=== PATIENT | female | born 1965 | race Caucasian/White ===

== ENCOUNTER 2025-06-16 13:16 | Inpatient (IN) | payer MEDICARE, MEDICAID, SELFPAY ==
[2025-06-16] VITALS (11 sets, daily range): BP systolic 96–161; BP diastolic 61–93; PULSE 64–96; RESP 12–20; TEMP 36.2–37; O2SAT 97–100; BMI 21.3
--- NOTE | ~2025-06-16 | CT_ITS ---
History: Increased confusion with a remote history of a fall without loss of consciousness PROCEDURE: CT head without contrast. Examination is limited by motion artifact. COMPARISON: None TECHNIQUE: Axial imaging of the head performed from the skull base to the vertex without IV contrast. Sagittal a nd coronal reformations obtained. DLP: 681 mGy-cm FINDINGS: The ventricles are enlarged. The dilatation of the ventricles is proportional to the degree of sulcal prominence, not uncommon in the senescent brain. Decreased attenuation is identified within the periventricular white matter, likely secondary to micr ovascular ischemic disease, in a patient of this age. There is no mass, mass effect or midline shift. There is no abnormal extra-axial fluid collection or intracranial hemorrhage. Visualized paranasal sinuses are clear. The mastoid air cells are well aerated. No acute displaced fractures within the overlying cranium. Impression: No acute intracranial hemorrhage or suspicious mass effect. Reviewed, dictated and finalized at location A. Impression: No acute intracranial hemorrhage or suspicious mass effect.
--- NOTE | ~2025-06-16 | CT_ITS ---
History: Altered mental status, with a remote history of a fall without loss of consciousness PROCEDURE: CT cervical spine without intravenous contrast. COMPARISON: None TECHNIQUE: Multiple contiguous axial images of the cervical spine were performed without the administration of i ntravenous contrast. DLP: 135 mGy-cm FINDINGS: Straightening and slight reversal of the normal curvature of the cervical spine is identified. Significant degenerative disease is identified, with osteophyte formation, disc space narrowing, endp late changes and facet arthropathy. There are bridging endplate osteophytes at multiple levels in the cervical spine, consistent with dif fuse idiopathic skeletal hyperostosis (DISH). No acute fractures are present. Biapical scarring. No soft tissue abnormality is appreciated. The airway is patent Impression: Degenerative disease, without acute fracture. Reviewed, dictated and finalized at location A. Impression: Degenerative disease, without acute fracture.
--- NOTE | ~2025-06-16 | XR_ITS ---
HISTORY: swelling, fall COMPARISON: None TECHNIQUE: 3 views of the left elbow were performed. The FINDINGS: No acute fracture is identified. No elevation of the anterior or posterior fat pads are identified to suggest a supracondylar fracture . Overlying soft tissues are unremarkable. Bone mineralization is age-appropriate. IMPRESSION: No acute fracture or dislocation Reviewed, dictated and finalized at location A.
--- NOTE | ~2025-06-16 | CT_ITS ---
EXAMINATION: CT abdomen pelvis wo con DATE: 06/17/2025 09:40 INDICATION: Intermittent diarrhea TECHNIQUE: Computed tomography (CT) of the abdomen and pelvis was performed without intravenous contr ast. Automated exposure control and iterative reconstruction technique were employed. The dose-length product was 298.75 mGy-cm. COMPARISON: None FINDINGS: Mild dependent atelectasis in bilateral lung bases. Heart size is normal. No pericardial or pleural e ffusion. Bilateral breast implants, collapsed on the right. Focal hepatic steatosis along the ligamen hernandez teres. Gallbladder, spleen, pancreas, bilateral adrenal glands and kidneys are normal. There are few scattered clonic diverticula without adjacent inflammatory stranding to suggest diverticulitis. S mall amount of fluid in the proximal colon consistent with reported history of diarrhea. No abnormal bowel wall thickening or obstruction. Normal appendix. Bladder, retroverted uterus and bilateral adne xa are unremarkable. No free intraperitoneal gas or fluid. No pathologically enlarged abdominal or pe lvic lymphadenopathy. Mild lumbar levocurvature with mild lumbar and moderate lower thoracic spondylo sis. IMPRESSION: 1. Fluid in the proximal colon consistent with reported history of diarrhea. No other acute intra-abd ominal/pelvic process. Reviewed, dictated and finalized at location A. IMPRESSION: 1. Fluid in the proximal colon consistent with reported history of diarrhea. No other acute intra-abdominal/pelvic process.
--- NOTE | 2025-06-16 14:07 | ECG_ITS ---
Test Date: 2025-06-16 15:20:37 Measurements Intervals [place] Rate: 77 P: 54 [place]: 162 QRS: 41 QRSD: 82 T: 45 QT: 316 QTc: 359 Interpretive Statements SINUS RHYTHM POSSIBLE LEFT ATRIAL ENLARGEMENT BORDERLINE T WAVE ABNORMALITY- ANTERIOR LEADS BASELINE ARTIFACT- I, II, III, AVR, AVL, AVF, V1-V6 BORDERLINE ECG No previous ECG available for comparison Electronically Signed On 06-16-2025 20:20:01 CDT by Baldemar Baig D.O.
--- OUTSIDE RECORDS SUMMARY | 2025-06-16 14:20 | XMS_ITS | Clinical Summary ---
Author Organization [facility] Address [address] [place] [address] Care Team Providers Care Materials Manager Name Role Phone Buster Song MD Unavailable [phone] Mj Brown MD Primary Care Provider Dedra Bernal NP Unavailable Allergies No known active allergies Medications acetaminophen 500 mg capsule Take 2 capsules (1,000 mg total) by mouth every 6 (six) hours as needed for pain 30 tablet 2 Active mv,calcium,min/iro n/folic/vitK (ONE-A-DAY WOMEN'S COMPLETE ORAL) Take by mouth A ctive polycarbophil (FIBERCON) 625 mg tablet Take 1 tablet (625 mg total) by mouth daily Active valACYclovir (VALTREX) 500 mg tabletIndications: Chronic Suppression Take 1 tablet (500 mg total) by mouth daily 30 tablet 3 3 Active cyclobenzaprine (FLEXERIL) 5 mg tablet Take 1 tablet (5 mg total) by mouth 3 (three) times a day as needed for muscle spasms 90 tablet 4 Active sertraline (ZOLOFT) 100 mg tablet Take 1 tablet (100 mg total) by mouth daily 90 tablet 3 4 09/25/20 25 Active donepeziL (ARICEPT) 10 mg tablet Take 1 tablet (10 mg total) by mouth nightly 90 tablet 3 4 10/15/20 25 Active levothyroxine (SYNTHROID) 100 mcg tabletIndications: Acquired hypothyroidism TAKE 1 TABLET BY MOUTH DAILY BEFORE BREAKFAST 30 tablet 3 5 Active QUEtiapine (SEROquel) 25 mg tabletIndications: 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 Will want to bring cholesterol under control as best as possible. Discussed side effects, but it is the best class to bring heart risk down Encounter for medical examination to establish c are 03/17/2022 Assessment & Plan (10/05/2023 10:14 AM FIRE PREVENTION SPECIALIST): A(n) yearly Medicare Annual Wellness Visit has been performed today. Tita Kwan is up to date on screening tests. He is in need of Cholesterol screening and Cervical cancer screening. She is not up to date on needed preventative vaccinations; She is in need of Influenza and Covid-19 (booster). We discussed healthy lifestyle habits, educational material has been given. Medications reviewed, changes documented as per the medical record and discussed with patient along with risks vs benefits. Return in 3 months Assessment & Plan (03/17/2022 4:16 PM CDT): A(n) initial well visit to establish care has been performed today. Tita Kwan is not up to date on screening tests. She is in need of Breast cancer screening, Colon cancer screening and Cervical cancer screening- gathering outside records; otherwise ordered. She is not up to date on needed preventative vaccinations; She is in need of Pneumonia (Prevnar-13 or Pneumovax-23) and Zoster. Awaiting labs Referral to neuro sent List of counseling resources given Continuing levothyroxine 100 mcg for now, but awaiting thyroid panel today Continuing sertraline as well; seems to be doing better on that currently Alcohol abuse 12/15/2021 Traumatic mesenteric hematoma 12/14/2021 Traumatic hemopneumothorax 12/14/2021 Laceration of neck 12/14/2021 Laceration of chest wall 12/14/2021 Hypothyroid 12/14/2021 Acute traumatic pain 12/14/2021 Resolved Problems Problem Noted Date Diagnosed Date Resolved Date Suicide and self-inflicted i njury by cutting and piercing instrument 12/14/2021 03/13/2025 Psychosis 12/14/2021 03/01/2024 Encounters Date Type Department Care Team Description 06/16/2025 12:30 PM CDT Office Visit [facility] at [address] [address] Shantelle Vale NP Fall, initial encounter (Primary Dx); Confusion; Urinary incontinence, unspecified type; Bursitis of left elbow, unspecified bursa; Injury of head, initial encounter; Decreased appetite 03/16/2025 Results Follow-Up [facility] at [address] [address] Mj Brown MD Hepatitis B Surface Antigen Blood, Hepatitis B core antibody, total Blood, Hepatitis B surface antibody (immune status) Blood, Additional followed-up results: 7 from Last 3 Months Immunizations Immunization Administration Dates Next Due Influenza, Quadrivalent, Mae l Culture-based MDCK, Preservative Free, Antibiotic Free, Intramuscular 07/26/2022 Influenza, Quadrivalent, Spl it, Preservative Free, Intramuscular 10/05/2023 Influenza, Trivalent, Cell Culture-based MDCK, Preservative Free, Antibiotic Free, Intramuscular 07/25/2024 Influenza, Trivalent, Preser vative Free, Intramuscular 08/16/2015 Influenza, Unspecified 07/25/2024,2021(Deferred: Patient Refused),10/31/2021(Deferred: Patient Refused),10/31/2020(Deferred: Patient Refused),10/31/2020(Deferred: Patient Refused) Pneumococcal Conjugate Pcv20 11/30/2024 Tdap 12/13/2021 ZOSTER Recombinant 05/25/2022,03/18/2022 Surgical History Surgery Date Site/Laterality Comments ABDOMINAL SURGERY 12/13/2021 COLONOSCOPY 03/30/2022 AUGMENTATION MAMMAPLASTY Bilateral unsure of date, pt does state right implant popped 2020 Medical History Medical History Date Comments Anxiety Depression Thyroid disease Memory loss or impairment Family History Medical History Relation Name Comments No Known Problems Father estranged/ unknown No Known Problems Half-Brother 1 No Known Problems Half-Brother 2 No Known Problems Half-Sister 1 No Known Problems Half-Sister 2 Heart attack Mother Sandie Heart disease Mother Sandie Ovarian cancer Neg Hx Relation Name Status Comments Father Half-Brother 1 Alive Half-Brother 2 Alive Half-Sister 1 Alive Half-Sister 2 Alive Mother Sandie Social History Tobacco Use Types Packs/Day Years Used Date Smoking Tobacco: Never Smokeless Tobacco: Never Tobacco Cessation:Counseling Given: Not Answered Humiliation, Afraid, Rape, and Kick questionnair e Answer Date Recorded Within the last year, have y ou been afraid of your partner or ex-partner? No 12/07/2023 Within the last year, have y ou been humiliated or emotionally abused in other ways by your partner or ex-partner? No Within the last year, have y ou been kicked, hit, slapped, or otherwise physically hurt by your partner or ex-partner? No 12/07/2023 Within the last year, have y ou been raped or forced to have any kind of sexual activity by your partner or ex-partner? No 12/07/2023 AUDIT-C Answer Date Recorded Q1: How often do you have a drink containing alc ohol? 2-4 times a month 12/07/2023 Q2: How many drinks containi ng alcohol do you have on a typical day when you are drinking? 1 or 2 12/07/2023 Q3: How often do you have si x or more drinks on one occasion? Never 12/07/2023 PHQ-2 Answer Date Recorded PHQ-2 Total Score (If total score is 3 or more points, staff should administer the PHQ-9) 0 03/13/2025 Comments No Sex and Gender Information Value Date Recorded Sex Assigned at Not on file Legal Sex Female 4:26 PM FIRE PREVENTION SPECIALIST Gender Identity Female 03/16/2022 11:15 PM CDT Sexual Orientation Straight 03/16/2022 11 :15 PM CDT Obstetrics History Para Term AB IAB SAB Ectopic Multiple Livin g Live Births 2 2 2 Date Outcome GA Total Labor Labor//3rd Weight Sex Type Anes PTL Mckayla A1 A5 Name Clin 2 Term 3.175 kg (7 lb) F Vaginal None Complications:None 5 Term 3.175 kg (7 lb) F Vaginal None Complications:None Last Filed Vital Signs Vital Sign Reading Time Taken Comments Blood Pressure 125/76 06/16/2025 12:04 PM CDT Pulse 77 06/16/2025 12:04 PM CDT Temperature 37.2 C (98.9 F) 06/16/2025 12:04 PM CDT Respiratory Rate 18 06/16/2025 12:04 PM CDT Oxygen Saturation 98% 06/16/2025 12:04 PM CDT Inhaled Oxygen Concentration - - Weight 51.7 kg (114 lb) 06/16/2025 12:04 PM CDT Height 157.5 cm (5' 2) 03/13/2025 11:13 AM CDT Body Mass Index 20.85 03/13/2025 11:13 AM CDT Plan of Treatment Health Maintenance Due Date Last Done Comments Breast Cancer Screening-Mammogram 09/07/2024 09/07/2023, 07/06/2022, 04/07/2022 Cervical Cancer Screening 12/07/2024 12/07/2023 Influenza Vaccine (#1) 2025 , 07/25/2024, 10/05/2023, Additional history exists Depression Screening 03/13/2026 03/13/2025, 09/05/2024, 03/01/2024, Additional history exists Regular Well Visit/Exam 18-64 03/13/2026 03/13/2025, 12/07/2023, 10/05/2023 DTaP/Tdap/Td Vaccine (2 - Td or Tdap) 12/13/2031 12/13/2021 Colon Cancer Screening-Colonoscopy 03/30/2032 03/30/2022, 03/30/2022, 03/30/2022 Hepatitis C Screening Completed 12/15/2021 Zoster Vaccine Completed 05/25/2022, 03/18/2022 Covid-19 Vaccine Completed 07/25/2024, , 10/28/2021, Additional history exists Pneumococcal vaccine <65 Aged Out 11/30/2024 No longer eligible based on patient's age to complete this topic Hepatitis B Screening Completed 03/14/2025 Procedures Procedure Name Priority Date/Time Associated Diagnosis Comments POCT URINALYSIS DIPSTICK Routine 06/16/2025 12:22 PM CDT Urinary incontinence, unspecified type PAP AND HPV, REFLEX TO HPV GENOTYPES Routine 12/07/2023 10:55 AM FIRE PREVENTION SPECIALIST Screening for cervical cancer Encounter for gynecological examination with Papanicolaou smear of cervix SCREENING MAMMOGRAM BILATERAL W YURY W IMPLANTS Schedule Routine, Read Routine (OP Routine) 09/07/2023 11:57 AM FIRE PREVENTION SPECIALIST Screening mammogram, encounter for COLONOSCOPY 03/30/2022 8:59 AM CDT HEPATITIS PANEL, ACUTE Routine 12/15/2021 8:27 PM FIRE PREVENTION SPECIALIST from Last 3 Months or Most Recently Relevant to Health Maintenance Results * POCT urinalysis dipstick (06/16/2025 12:22 PM CDT) Color, Urine, POC Yellow Clarity, ur, POC Clear Clear Glucose, ur, POC Negative Negative Bilirubin, ur, POC Negative Negative Ketones, ur, POC Negative Negative Specific [place], POC 1.010 1.003 - 1.030 Blood, ur, POC Negative Negative pH, ur, POC 6.5 5.0 - 8.0 Protein, ur, POC Negative Negative Urobilinogen, urine, POC 0.2 0.2 - 1.0 mg/dL Nitrite, ur, POC Negative Negative Leukocytes, ur, POC Negative Negative Lot Number [id number] Urine 06/16/2025 12:2 2 PM CDT Shantelle Vale NP POINT OF CARE TEST ORDERAB LES Final Result * Pap and HPV, reflex to HPV Genotypes (12/07/2023 10:55 AM FIRE PREVENTION SPECIALIST) CLINICAL INFORMATION: [facility] Comment:WWE LMP [facility] Comment:NA Previous Pap [facility] Comment:NONE GIVEN Prev. Bx [facility] Comment:NONE GIVEN SOURCE: [facility] Comment:Cervix, Endocervix Pap, specimen adequacy [facility] Comment: Satisfactory for evaluation. Endocervical/transformation zone component present. HPV interp [facility] Comment: Cytology Results: Negative for intraepithelial lesion or malignancy. Atrophic pattern; predominantly parabasal cells COMMENTS [facility] Comment: This Pap test has been evaluated with computer assisted technology. Carbon Setter [facility] Comment: MICKIE CT(ASCP) CT Screening Location: [address] [address] Comment [facility] Comment: EXPLANATORY NOTE: The Pap is a screening test for cervical cancer. It is not a diagnostic test and is subject to false negative and false positive results. It is most reliable when a satisfactory sample, regularly obtained, is submitted with relevant clinical findings and history, and when the Pap result is evaluated along with historic and current clinical information. Human papillomavirus DNA, High Risk E6/E7 Not Detected NOT DETECTED [employer] [facility] [place] Comment: Not Detected High Risk HPV types (16,18,31,33,35,39,45,51,52, 56,58,59,66,68) were not detected. Other HPV types which cause anogenital lesions may be present. The significance of the other types of HPV in malignant processes has not been established. Methodology: Real Time PCR Thin prep 12/07/2023 10:5 5 AM FIRE PREVENTION SPECIALIST 12/08/2023 11:57 PM FIRE PREVENTION SPECIALIST Azalia Ferguson MARKET RESEARCH ASSOCIATE LAB CYTOLOGY ORDERABLES Final Re sult SOBEIDA [facility] [address] [place] [address] [facility] [address] [facility] [place] [address] * Screening Mammogram Bilateral W Yury W Implants (09/07/2023 11:57 AM FIRE PREVENTION SPECIALIST) Anatomical Region Laterality Modality Breast Bilateral Mammography 09/07/2023 12:1 1 PM FIRE PREVENTION SPECIALIST Impressions 09/07/2023 12:11 PM FIRE PREVENTION SPECIALIST There is no mammographic evidence of malignancy. A 1 year screening mammogram is recommended. BI-RADS: 2 - Benign. The patient has been or will be contacted. The patient will be entered into a reminder system with a target due date of 1 year for her next mammogram. Electronically signed by: Rishi Arevalo M.D. Narrative 09/07/2023 12:11 PM FIRE PREVENTION SPECIALIST EXAMINATION: SCREENING MAMMOGRAM BILATERAL W YURY W IMPLANTS ORDERING HEALTHCARE PROVIDER: SELF SCREENING MAMMOGRAM HISTORY: Routine screening mammography. COMPARISON: 07/06/2022, 04/07/2022 TECHNIQUE: CC and MLO views of the bilateral breasts were obtained with digital technique using breast tomosynthesis with C view. Computer aided detection was utilized. FINDINGS: DENSITY: There are scattered fibroglandular elements in the bilateral breasts. BREASTS: A subpectoral saline left breast implant is unchanged in appearance. The presence of an implant limits the sensitivity of mammography. There is a stable small intramammary lymph node at the 2 o'clock position of the left breast, characterized on prior ultrasound. There are unchanged benign scattered calcifications in the right breast. There is no new suspicious finding in either breast on mammogram. us Self Screening Mammogram IMG MAMMO PROCEDURES Fi nal Result * COLONOSCOPY (03/30/2022 8:59 AM CDT) Anatomical Region Laterality Modality Other Narrative Procedure Note Margarita Baron MD - 03/30/2022 8:59 AM CDT [facility] Patient Name: Tita Kwan Procedure Date: 03/30/2022 8:59 AM Date of : 1965 Admit Type: Outpatient Age: 57 Gender: Female Note Status: Finalized Attending MD: Margarita Baron M.D. Procedure Date: 03/30/2022 Procedure: Colonoscopy Indications: Screening for colorectal malignant neoplasm, Thisis the patient's first colonoscopy Providers: Margarita Baron M.D., João Mota OYSTER BUYER (Anesthesia Staff), Eliza Tran RN, Avelino, Director Of First Impressions Referring MD: Mj Brown M.D. Medicines: Monitored Anesthesia Care Complications: No immediate complications. Estimated Blood Loss: Estimated blood loss: none. Procedure: Pre-Anesthesia Assessment: - Prior to the procedure, a History and Physicalwas performed, and patient medications and allergieswere reviewed. The patient is competent. The risks and benefits of the procedure and the sedation optionsand risks were discussed with the patient. Allquestions were answered and informed consent was obtained. Patient identification and proposed procedure were verified by the physician and the nurse in the pre-procedure area in the procedure room. Mental Status Examination: alert and oriented. Airway Examination: normal oropharyngeal airway and neck mobility. Respiratory Examination: clear to auscultation. CV Examination: normal. Prophylactic Antibiotics: The patient does not requireprophylactic antibiotics. Prior Anticoagulants: The patient has taken no anticoagulant or antiplatelet agents. ASA Grade Assessment: III - A patient with severesystemic disease. After reviewing the risks and benefits,the patient was deemed in satisfactory condition to undergo the procedure. The anesthesia plan was touse monitored anesthesia care (MAC). Immediately priorto administration of medications, the patient was re-assessed for adequacy to receive sedatives. The heart rate, respiratory rate, oxygen saturations, blood pressure, adequacy of pulmonary ventilation,and response to care were monitored throughout the procedure. The physical status of the patient was re-assessed after the procedure. - The risks and benefits of the procedure and the sedation options and risks were discussed with the patient. All questions were answered and informed consent was obtained. After I obtained informed consent, the scope was passed under direct vision. Throughout theprocedure, the patient's blood pressure, pulse, and oxygen saturations were monitored continuously. The scopewas passed under direct vision. The Colonoscope was introduced through the anus and advanced to the the cecum, identified by appendiceal orifice andileocecal valve. The colonoscopy was performed without difficulty. The patient tolerated the procedurewell. The quality of the bowel preparation was good. The bowel preparation used was GoLYTELY via split dose instruction. Findings: Hemorrhoids were found on perianal exam. Non-bleeding external and internal hemorrhoids were found during retroflexion. The hemorrhoids were mild. The exam was otherwise without abnormality on direct and retroflexion views. Impression: - Hemorrhoids found on perianal exam. - Non-bleeding external and internal hemorrhoids. - The examination was otherwise normal on directand retroflexion views. - No specimens collected. Recommendation: - Patient has a contact number available for emergencies. The signs and symptoms of potential delayed complications were discussed with thepatient. Return to normal activities tomorrow. Written discharge instructions were provided to thepatient. - Resume previous diet. - Continue present medications. - Repeat colonoscopy in 10 years for screening purposes. Procedure Code(s): --- Professional --- G0121, Colorectal cancer screening; colonoscopy on individual not meeting criteria for high risk Diagnosis Code(s): --- Professional --- Z12.11, Encounter for screening for malignantneoplasm of colon K64.8, Other hemorrhoids CPT copyright 2020 [employer]. All rights reserved. The codes documented in this report are preliminary and upon dentofacial orthopedics dentist reviewmay be revised to meet current compliance requirements. Electronically signed by Tod Avila MD Margarita Baron M.D. 03/30/2022 9:27:01 AM This report has been electronically signed by the physician. Number of Addenda: 0 Note Initiated On: 03/30/2022 8:59 AM Margarita Baron MD ENDOSCOPY PROCEDURES Final Re sult * Hepatitis panel, acute (12/15/2021 8:27 PM FIRE PREVENTION SPECIALIST) Hep A IgM Nonreactive Nonreactive [facility] Comment: Interpretive Data: If Hep A IgM Ab is reported as Equivocal, a new sample should be drawn in two weeks for testing. Current interpretive data was last revised on 20. Hep B core IgM Nonreactive Nonreactive [facility] Comment: Interpretive Data If HepB Core IgM Ab is reported as Equivocal, a new sample should be drawn in two weeks for testing. Current interpretive data was last revised on 20. Hep C Ab Nonreactive Nonreactive [facility] Comment:Antibodies to HCV no t detected. Does NOT exclude the possibility of recent exposure to HCV. HepBsAg Nonreactive Nonreactive [facility] Blood 12/15/2021 8:27 PM FIRE PREVENTION SPECIALIST 12/15/2021 9:20 PM FIRE PREVENTION SPECIALIST Rina Garvin NP LAB MICROBI OLOGY - GENERAL ORDERABLES Edited Result - Final [facility] [place] [address] from Last 3 Months or Most Recently Relevant to Health Maintenance Insurance MEDICARE MEDICARE Advance Directives For more information, please contact: [phone] Documents on File Type Date Recorded Patient Education Sales Consultant Expl anation Advance Directives and Livin g Will 10/05/2023 11:07 AM * Full Code (Latest Code Status on File) Date Activated Date Inactivated Comments 12/14/2021 12:46 AM 01/02/2022 5:08 PM Care Teams Materials Manager Relationship Specialty Start Date End Date Mj Brown MD [address] [place] [address] PCP - General Family Medicine 03/17/22 Buster Song MD [address] [place] [id number] Referring Physician Internal Medicine 01/02/22 Dedra Bernal NP [address] [place] [address] Nurse Practitioner General Surgery 09/16/22
--- OUTSIDE RECORDS SUMMARY | 2025-06-16 14:20 | XMS_ITS | Encounter Summary ---
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 [address] [place] [address] [address] [place] [address] Fall, initial encounter (Primary Dx); Confusion; Urinary incontinence, unspecified type; Bursitis of left elbow, unspecified bursa; Injury of head, initial encounter; Decreased appetite Social History Tobacco Use Types Packs/Day Years Used Date Smoking Tobacco: Never Smokeless Tobacco: Never Humiliation, Afraid, Rape, and Kick questionnair e [...] on file Legal Sex 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 Gender Identity Female 03/16/2022 11:15 PM CDT Sexual Orientation Straight 03/16/2022 11 :15 PM CDT documented as of this encounter Last Filed Vital Signs Vital Sign Reading Time Taken Comments Blood Pressure 125/76 06/16/2025 12:04 PM CDT Pulse 77 06/16/2025 12:04 PM CDT Temperature 37.2 C (98.9 F) 06/16/2025 12:04 PM CDT Respiratory Rate 18 06/16/2025 12:04 PM CDT Oxygen Saturation 98% 06/16/2025 12:04 PM CDT Inhaled Oxygen Concentration - - Weight 51.7 kg (114 lb) 06/16/2025 12:04 PM CDT Height - - Body Mass Index 20.85 03/13/2025 11:13 AM CDT documented in this encounter Patient Instructions * Patient Instructions* Shantelle Vale NP - 06/16/2025 12:30 PM CDT Presents with daughter with history of Alzheimer's disease. Patient has been refusing to eat per family and has had sunken in eyes. Reports that patient has had sudden increase in confusion along with urinary incontinence which is atypical for patient. Patient's urine in the clinic was normal. Patient also had a fall yesterday where she mildly bumped her head and hit her left elbow while getting out of the shower. Patient has left elbow does appear to have a bursitis. Concern for altered mentalstatus Component Ref Range & Units 12:22 Color, Urine, POC Yellow Clarity, ur, POC Clear Clear Glucose, ur, POC Negative Negative Bilirubin, ur, POC Negative Negative Ketones, ur, POC Negative Negative Specific [place]enia, POC 1.003 - 1.030 1.010 Blood, ur, POC Negative Negative pH, ur, POC 5.0 - 8.0 6.5 Protein, ur, POC Negative Negative Urobilinogen, urine, POC 0.2 - 1.0 mg/dL 0.2 Nitrite, ur, POC Negative Negative Leukocytes, ur, POC Negative Negative Lot Number [id number] documented in this encounter Plan of Treatment Scheduled Orders Name Type Priority Associated Diagnoses Orde r Schedule Urine culture Urine, clean voided Microbiology Routine Urinary incontinence, unspecified type Expected: 06/16/2025, Expires: 06/16/2026 documented as of this encounter Procedures Procedure Name Priority Date/Time Associated Diagnosis Comments POCT URINALYSIS DIPSTICK Routine 06/16/2025 12:22 PM CDT Urinary incontinence, unspecified type documented in this encounter Results * POCT urinalysis dipstick (06/16/2025 12:22 PM CDT) Color, Urine, POC Yellow Clarity, ur, POC Clear Clear Glucose, ur, POC Negative Negative Bilirubin, ur, POC Negative Negative Ketones, ur, POC Negative Negative Specific [place], POC 1.010 1.003 - 1.030 Blood, ur, POC Negative Negative pH, ur, POC 6.5 5.0 - 8.0 Protein, ur, POC Negative Negative Urobilinogen, urine, POC 0.2 0.2 - 1.0 mg/dL Nitrite, ur, POC Negative Negative Leukocytes, ur, POC Negative Negative Lot Number [id number] Urine 06/16/2025 12:2 2 PM CDT Shantelle Vale NP POINT OF CARE TEST ORDERAB LES Final Result documented in this encounter Visit Diagnoses Diagnosis Fall, initial encounter- Primary Confusion Unspecified psychosis Urinary incontinence, unspecified type Bursitis of left elbow, unspecified bursa Injury of head, initial encounter Decreased appetite Anorexia documented in this encounter Care Teams Regional Medical Director Relationship Specialty Start Date End Date Mj Brown MD [address] [place] [address] PCP - General Family Medicine 03/17/22 Buster Song MD [address] [place] [id number] Referring Physician Internal Medicine 01/02/22 Dedra Bernal NP [address] [place] [address] Nurse Practitioner General Surgery 09/16/22 documented as of this encounter
--- NOTE | 2025-06-16 14:31 | ED_ITS ---
HPI - Altered Mental Status General Chief Complaint: Altered Mental Status <JULITA Clarke Last Filed: 06/16/25 19:41> Stated Complaint: ams <JULITA Clarke Last Filed: 06/16/25 19:41> Time Seen by Provider: 06/16/25 14:07 <Dedra Mabry PA-C - Last Filed: 06/16/25 19:41> Source: patient and family <JULITA Clarke Last Filed: 06/16/25 19:41> Mode of arrival: ambulatory <JULITA Clarke Last Filed: 06/16/25 19:41> Limitations: dementia <JULITA Clarke Last Filed: 06/16/25 19:41> History of Present Illness HPI narrative: This is a 60-year-old female that presents to the emergency department for increased confusion. Ongoing over the last couple of days. She does have history of dementia. Reports new urinary incontinence. She also fell yesterday while her daughter was with her and hit her head. She did not lose consciousness. <Dedra Mabry PA-C - Last Filed: 06/16/25 19:41> Related Data Allergies/Adverse Reactions: Allergies Allergy/AdvReac Type Severity Reaction Status Date / Time No Known Allergies Allergy Verified 06/16/25 19:38 <Dedra Mabry PA-C - Last Filed: 06/16/25 19:41> Review of Systems 2 Review of Systems: ROS unobtainable: Yes unobtainable due to medical condition <Dedra Mabry PA-C - Last Filed: 06/16/25 19:41> PMFSH Past Medical History Medical History: Medical History HLD (hyperlipidemia) Dementia Hypothyroidism <JULITA Clarke Last Filed: 06/16/25 19:41> Exam 2 Narrative: GENERAL: Well-appearing, well-nourished, and in no acute distress. HEAD: Normocephalic, atraumatic. EYES: PERRLA and EOMI. ENT: Nares clear, no rhinorrhea or epistaxis. Mucous membranes moist. Oropharynx without tonsillar hypertrophy exudate or other lesions. Bilateral TMs pearly gonzales non-bulging NECK: Supple. No adenopathy or masses. CHEST: Clear to auscultation. No respiratory distress. No wheezes rales or rhonchi HEART: Regular rate and rhythm. No murmur heard. Normal peripheral pulses. ABDOMEN: Soft, nontender, nondistended, normal active bowel sounds. EXTREMITIES: Normal range of motion. No edema. Strength equal in bilateral upper and lower extremities (5/5) SKIN: Warm, dry, no rash. NEURO: No focal deficits. Alert and oriented x1. CN II-XII grossly intact PSYCH: Normal mood and affect <Dedra Mabry PA-C - Last Filed: 06/16/25 19:41> Course Course Emergency Course: Patient's family member was updated on workup and recommendation for admission <Dedra Mabry PA-C - Last Filed: 06/16/25 19:41> SENIOR SQL SERVER DATABASE DEVELOPER/PA Physician Supervision This visit was performed by both a physician and an APC. I performed all aspects of the MDM as documented. <Orlando Smalls MD - Last Filed: 06/16/25 20:25> Consultations Consultation #1: Spoke with hospitalist about patient and workup who accepts admission < Dedra Mabry PA-C - Last Filed: 06/16/25 19:41> Date: 06/16/25 <Dedra Mabry PA-C - Last Filed: 06/16/25 19:41> Vital Signs Vital signs: Vital Signs Temperature 97.9 F 06/16/25 13:26 Pulse Rate 96 06/16/25 13:26 Respiratory Rate 18 06/16/25 13:26 Blood Pressure 129/69 06/16/25 13:26 Pulse Oximetry 99 06/16/25 13:26 Oxygen Delivery Room Air 06/16/25 13:26 Temperature 97.1 F L 06/16/25 20:00 Pulse Rate 64 06/16/25 20:00 Respiratory Rate 12 06/16/25 20:00 Blood Pressure 141/71 H 06/16/25 20:00 Pulse Oximetry 100 06/16/25 20:00 Oxygen Delivery Room Air 06/16/25 14:30 <Dedra Mabry PA-C - Last Filed: 06/16/25 19:41> Vital Signs Temperature 97.9 F 06/16/25 13:26 Pulse Rate 96 06/16/25 13:26 Respiratory Rate 18 06/16/25 13:26 Blood Pressure 129/69 06/16/25 13:26 Pulse Oximetry 99 06/16/25 13:26 Oxygen Delivery Room Air 06/16/25 13:26 Temperature 97.1 F L 06/16/25 20:00 Pulse Rate 64 06/16/25 20:00 Respiratory Rate 12 06/16/25 20:00 Blood Pressure 141/71 H 06/16/25 20:00 Pulse Oximetry 100 06/16/25 20:00 Oxygen Delivery Room Air 06/16/25 14:30 <Orlando Smalls MD - Last Filed: 06/16/25 20:25> MDM - Altered Mental Status MDM Narrative Medical decision making narrative: Patient presents to the ER for increased confusion, a fall yesterday, decreased appetite. Patient with history of frontotemporal dementia. Patient is afebrile and nontoxic appearing. Her vitals are stable. Cbc without leukocytosis. Metabolic panel shows hyponatremia which is acute for patient after reviewing some recent blood work. Urine without evidence of infection. CT brain and cervical spine without acute findings. Left elbow x-ray without acute osseous abnormalities. Patient will be admitted for further management of hyponatremia. <Dedra Mabry PA-C - Last Filed: 06/16/25 19:41> Differential Diagnosis Differential diagnosis: Likely altered mental status, dementia, hyponatremia, subarachnoid hemorrhage and other (UTI) <Dedra Mabry PA-C - Last Filed: 06/16/25 19:41> Medical Records Attestation: I reviewed the patient's medical records. <Dedra Mabry PA-C - Last Filed: 06/16/25 19:41> Medical records narrative: Patient's daughter was able to access EMR showing sodium of 141 just a couple of months ago <Dedra Mabry PA-C - Last Filed: 06/16/25 19:41> Lab Data Attestation: I reviewed the patient's lab results. <Dedra Mabry PA-C - Last Filed: 06/16/25 19:41> Result diagrams: 06/16/25 14:25 06/16/25 14:25 <Dedra Mabry PA-C - Last Filed: 06/16/25 19:41> Labs: Lab Results 06/16/25 06/16/25 Range/Units 14:25 14:41 WBC 9.1 (4.5-10.0) K/mm3 RBC 4.41 (4.2-5.4) M/mm3 Hgb 12.7 (12.0-15.0) g/dL Hct 37.2 (37.0-47.0) % MCV 84.4 (80-100) fl MCH 28.8 (26-34) pg MCHC 34.1 (32-36) g/dl RDW 11.9 (11.5-14.5) % Plt Count 321 (150-375) k/mm3 MPV 8.8 (7.4-10.4) fl Immature Gran % (Auto) 0.3 (0-0.5) % Neut % (Auto) 81.3 H (45.5-73.1) % Lymph % (Auto) 7.4 L (18.3-44.2) % Mayes % (Auto) 10.7 H (2.6-8.5) % Eos % (Auto) 0.0 (0-4.4) % Baso % (Auto) 0.3 (0.2-1.2) % Lymph # (Auto) 0.68 L (0.9-3.2) K/mm3 Mayes # (Auto) 1.0 H (0.1-0.6) K/mm3 Eos # (Auto) 0.0 (0-0.3) K/mm3 Baso # (Auto) 0.0 (0.0-0.1) K/mm3 Abs Immat Gran (auto) 0.03 (0.00-0.031) K/mm3 Absolute Neuts (auto) 7.4 H (1.3-6.7) K/mm3 Absolute Nucleated RBC 0.000 (0.0-0.012) K/mm3 Nucleated RBC % 0.0 (0.0-0.2) % PT 13.8 (11.1-14.7) Seconds INR 1.0 APTT 32.1 (22.3-36.8) Seconds Sodium 127 L (137-145) mmol/L Potassium 3.6 (3.4-5.0) mmol/L Chloride 90 L (98-107) mmol/L Carbon Dioxide 26 (22-30) mmol/L Anion Gap 11 (4-12) mmol/L BUN 3 L (7-17) mg/dL Creatinine 0.69 L (0.7-1.0) mg/dL Estim Creat Clear Calc 59 ml/min Estimated GFR > 60 (59 - ) Glucose 134 H (65-110) mg/dL Calcium 8.9 (8.4-10.2) mg/dL Magnesium 2.0 (1.6-2.3) mg/dL Total Bilirubin 0.2 (0.2-1.3) mg/dL AST 31 (14-36) U/L ALT 24 (6-35) U/L Alkaline Phosphatase 62 (38-126) U/L Total Creatine Kinase 101 (30-135) U/L Total Protein 7.8 (6.3-8.2) g/dL Albumin 4.6 (3.5-5.1) g/dL Urine Color Yellow (Yellow) Urine Appearance Clear (Clear) Urine pH 6.0 (5.0-9.0) Ur Specific [place] 1.004 (1.001-1.035) Urine Protein Negative (Negative) mg/dL Urine Glucose (UA) Negative (Negative) mg/dL Urine Ketones Negative (Negative) mg/dL Ur Blood (Man) Negative (Negative) Urine Nitrate Negative (Negative) Urine Bilirubin Negative (Negative) Urine Urobilinogen 0.2 (<2.0) mg/dL Add Ur Microanalysis Reviewed Leukocyte Esterase Rfl Trace H (Negative) ELI/UL Urine RBC 0-2 (0-2) /hpf Urine WBC 0-5 (0-3) /hpf Ur Squamous Epith Cells None seen (Few) /hpf Urine Bacteria None seen /hpf Urine Casts 0-2 <Dedra Mabry PA-C - Last Filed: 06/16/25 19:41> Lab Results 06/16/25 06/16/25 Range/Units 14:25 14:41 WBC 9.1 (4.5-10.0) K/mm3 RBC 4.41 (4.2-5.4) M/mm3 Hgb 12.7 (12.0-15.0) g/dL Hct 37.2 (37.0-47.0) % MCV 84.4 (80-100) fl MCH 28.8 (26-34) pg MCHC 34.1 (32-36) g/dl RDW 11.9 (11.5-14.5) % Plt Count 321 (150-375) k/mm3 MPV 8.8 (7.4-10.4) fl Immature Gran % (Auto) 0.3 (0-0.5) % Neut % (Auto) 81.3 H (45.5-73.1) % Lymph % (Auto) 7.4 L (18.3-44.2) % Mayes % (Auto) 10.7 H (2.6-8.5) % Eos % (Auto) 0.0 (0-4.4) % Baso % (Auto) 0.3 (0.2-1.2) % Lymph # (Auto) 0.68 L (0.9-3.2) K/mm3 Mayes # (Auto) 1.0 H (0.1-0.6) K/mm3 Eos # (Auto) 0.0 (0-0.3) K/mm3 Baso # (Auto) 0.0 (0.0-0.1) K/mm3 Abs Immat Gran (auto) 0.03 (0.00-0.031) K/mm3 Absolute Neuts (auto) 7.4 H (1.3-6.7) K/mm3 Absolute Nucleated RBC 0.000 (0.0-0.012) K/mm3 Nucleated RBC % 0.0 (0.0-0.2) % PT 13.8 (11.1-14.7) Seconds INR 1.0 APTT 32.1 (22.3-36.8) Seconds Sodium 127 L (137-145) mmol/L Potassium 3.6 (3.4-5.0) mmol/L Chloride 90 L (98-107) mmol/L Carbon Dioxide 26 (22-30) mmol/L Anion Gap 11 (4-12) mmol/L BUN 3 L (7-17) mg/dL Creatinine 0.69 L (0.7-1.0) mg/dL Estim Creat Clear Calc 59 ml/min Estimated GFR > 60 (59 - ) Glucose 134 H (65-110) mg/dL Calcium 8.9 (8.4-10.2) mg/dL Magnesium 2.0 (1.6-2.3) mg/dL Total Bilirubin 0.2 (0.2-1.3) mg/dL AST 31 (14-36) U/L ALT 24 (6-35) U/L Alkaline Phosphatase 62 (38-126) U/L Total Creatine Kinase 101 (30-135) U/L Total Protein 7.8 (6.3-8.2) g/dL Albumin 4.6 (3.5-5.1) g/dL Urine Color Yellow (Yellow) Urine Appearance Clear (Clear) Urine pH 6.0 (5.0-9.0) Ur Specific [place] 1.004 (1.001-1.035) Urine Protein Negative (Negative) mg/dL Urine Glucose (UA) Negative (Negative) mg/dL Urine Ketones Negative (Negative) mg/dL Ur Blood (Man) Negative (Negative) Urine Nitrate Negative (Negative) Urine Bilirubin Negative (Negative) Urine Urobilinogen 0.2 (<2.0) mg/dL Add Ur Microanalysis Reviewed Leukocyte Esterase Rfl Trace H (Negative) ELI/UL Urine RBC 0-2 (0-2) /hpf Urine WBC 0-5 (0-3) /hpf Ur Squamous Epith Cells None seen (Few) /hpf Urine Bacteria None seen /hpf Urine Casts 0-2 <Orlando Smalls MD - Last Filed: 06/16/25 20:25> Imaging Data Radiologist's impression: ITS Impressions Head CT 06/16/25 15:06 Impression: No acute intracranial hemorrhage or suspicious mass effect. Cervical Spine CT 06/16/25 15:10 Impression: Degenerative disease, without acute fracture. <Dedra Mabry PA-C - Last Filed: 06/16/25 19:41> ECG Data EKG #1: ECG completion date: 06/16/25 <Dedra Mabry PA-C - Last Filed: 06/16/25 19:41> EKG Interpretation: normal rate, sinus rhythm, no ST changes and normal QT <Dedra Mabry PA-C - Last Filed: 06/16/25 19:41> Critical Care Time Critical Care Time Critical Care Time: No <Dedra Mabry PA-C - Last Filed: 06/16/25 19:41> Discharge Plan Discharge Clinical Impression: Hyponatremia Contusion of elbow, left Qualifiers: Encounter type: initial encounter Qualified Code(s): S50.02XA - Contusion of left elbow, initial encounter <Dedra Mabry PA-C - Last Filed: 06/16/25 19:41> Patient Disposition: Still a Patient <Dedra Mabry PA-C - Last Filed: 06/16/25 19:41> Condition: Stable <Dedra Mabry PA-C - Last Filed: 06/16/25 19:41>
[2025-06-16 14:41] LABS: Hematocrit 37.2 % (37.0-47.0); Hemoglobin 12.7 g/dL (12.0-15.0); Immature Granulocyte Percent A 0.3 % (0-0.5); Lymphocytes Absolute Auto 0.68 K/mm3 (0.9-3.2); Mean Corpuscular HGB Conc 34.1 g/dl (32-36); Mean Corpuscular Hemoglobin 28.8 pg (26-34); Mean Corpuscular Volume 84.4 fl (80-100); Nucleated Red Blood Cells Absolute Auto 0.000 K/mm3 (0.0-0.012); Nucleated Red Blood Cells Perc 0.0 % (0.0-0.2); Platelet Count Result 321 k/mm3 (150-375); Red Blood Count 4.41 M/mm3 (4.2-5.4); White Blood Count 9.1 K/mm3 (4.5-10.0)
[2025-06-16 14:50] LABS: Alanine Aminotransferase 24 U/L (6-35); Albumin Level 4.6 g/dL (3.5-5.1); Alkaline Phosphatase 62 U/L (38-126); Anion Gap 11 mmol/L (4-12); Aspartate Amino Transferase 31 U/L (14-36); Bilirubin,Total 0.2 mg/dL (0.2-1.3); Blood Urea Nitrogen 3 mg/dL (7-17); Calcium 8.9 mg/dL (8.4-10.2); Carbon Dioxide 26 mmol/L (22-30); Chloride 90 mmol/L (98-107); Creatine Kinase 101 U/L (30-135); Estimated CRCL calculation 59 ml/min; Estimated Glomerular Filt Rate > 60; Glucose 134 mg/dL (65-110); Magnesium 2.0 mg/dL (1.6-2.3); Potassium 3.6 mmol/L (3.4-5.0); Sodium 127 mmol/L (137-145); Total Protein 7.8 g/dL (6.3-8.2)
[2025-06-16 14:56] LABS: INR 1.0; Prothrombin Time 13.8 Seconds (11.1-14.7)
[2025-06-16 14:57] LABS: Partial Thromboplastin Time 32.1 Seconds (22.3-36.8)
[2025-06-16 15:41] LABS: Add Urine Microscopic? YES; Appearance Urine Clear (Clear); Glucose Urine UA Negative (Negative); Leukocyte Esterase Ur Trace LEU/UL (Negative); Need Manual Microscopic Reviewed; Nitrate Urine Negative (Negative); Non Pathogenic Casts 0-2; Specific Grav Ur 1.004 (1.001-1.035)
[2025-06-16] MEDS: LORazepam INJ (*CRX) 2 MG/ML VIAL 1 MG IV PUSH (19:00)
[2025-06-16] MEDS: SODIUM CHLORIDE 0.9% IV 1,000 ML 999 ML IV CONT (19:01)
[2025-06-16] MEDS: SODIUM CHLORIDE 0.9% IV 1,000 ML 100 ML IV CONT (19:02)
--- NOTE | 2025-06-16 19:10 | P.HP_ITS ---
H&P: HPI History of Present Illness Date/Time: 06/16/25 19:10 Chief Complaint: Poor Appetite, Worsening Confusion Narrative: 60 y/o F with PMH of dementia presents here with poor p.o. intake and worsening confusion. The patient presents here from home for further evaluation of poor p.o. intake, incontinence, and worsening confusion. Patient has a history of dementia and currently A/Ox1, therefore family provided collateral information which was obtained through chart review and report to the bedside RN. The report onset over the last few days. She then developed urinary incontinence and had a ground level fall yesterday on 06/15. Fall was witnessed by the patient's daughter. Patient did have a head strike without loss of consciousness. Family is also reporting when the patient has been incontinent she has also had a small amount of diarrhea. Patient denies fever, chills, body aches, or abdominal pain on exam. Initial VS at presentation: 97.9? F, HR 96, R 18, 129/69, and 99% on RA. ED workup showed: No leukocytosis go been no anemia, normal coags, sodium 127 (no previous available for comparison), creatinine 0.69 and GFR >60, glucose 134, and no other significant electrolyte derangements. UA showed trace leuk esterase otherwise unremarkable. Head CT showed no acute intracranial hemorrhage or suspicious mass effect. C-spine CT showed degenerative disease without acute fracture. Elbow XR (L) showed no acute fracture or dislocation. EKG showed sinus rhythm, possible left atrial enlargement, nonspecific T-wave abnormality, rate 77. Review of Systems Review of Systems: ROS unobtainable: Yes unobtainable due to mental status PMFSH Past Medical History Medical History HLD (hyperlipidemia) Dementia Hypothyroidism Social History Social History Smoking status: Former smoker Alcohol intake: never Substance use: never Substance use type: does not use Lack of Transportation: No Lack of Food: Never True Current Housing: I Have Housing Concerned About Future Housing: No Difficulty Paying Gas/Electric Bills: Decline to Answer Difficulty Paying for Meds: Decline to Answer Currently Unemployed: Decline to Answer Education: Bachelor's Degree Difficulty w/ Childcare or Family Care: No Spiritual care concerns: No Meds Home Medications and Allergies Home Medications ?Medication ?Instructions ?Recorded ?Confirmed ?Type donepezil 10 mg tablet 10 mg PO HS 06/16/25 06/16/25 History levothyroxine 100 mcg tablet 100 mcg PO .am 06/16/25 06/16/25 History quetiapine 25 mg tablet 25 mg PO HS 06/16/25 06/16/25 History rosuvastatin 20 mg tablet 20 mg PO .am 06/16/25 06/16/25 History sertraline 100 mg tablet 100 mg PO .am 06/16/25 06/16/25 History Allergies Allergy/AdvReac Type Severity Reaction Status Date / Time No Known Allergies Allergy Verified 06/16/25 19:38 Vital Signs Vital Signs - 24 hr 06/16/25 13:26 06/16/25 13:27 06/16/25 13:28 Temperature 97.9 F Pulse Rate 96 Respiratory Rate 18 Blood Pressure 129/69 109/80 Pulse Oximetry 99 97 97 Oxygen Delivery Room Air 06/16/25 13:31 06/16/25 13:41 06/16/25 13:46 Temperature Pulse Rate Respiratory Rate Blood Pressure 129/69 128/93 H Pulse Oximetry 98 Oxygen Delivery 06/16/25 14:30 06/16/25 18:34 Temperature 98.3 F Pulse Rate 66 Respiratory Rate 17 Blood Pressure 161/87 H Pulse Oximetry 98 100 Oxygen Delivery Room Air Exam Const: General: comfortable and no acute distress Other: , female, nontoxic appearance HENMT: Face/Nose/Sinus: Normal nares present Mouth: Yes moist mucous membranes Eyes: General: appearance normal, both eyes and all related structures Sclera: sclerae normal Pupils: Equal, round and reactive pupils present EOM: EOMs intact bilaterally Resp: Effort & Inspection: normal respiratory effort Auscultation: clear to auscultation bilaterally Cardio: Rate: regular rate Rhythm: regular rhythm GI: Other: Abdomen soft, nondistended, nontender. Normoactive bowel sounds in all quadrants. Skin: General skin exam: normal color and no rashes or lesions noted Wounds: no wounds Neuro: Speech: normal speech Motor exam (neuro): 5/5 motor strength present throughout Sensory Exam: normal sensation Other: A/Ox1, unable to provide any history. Extrem: General: normal to inspection Psych: Mental Status: mental status grossly normal Other: Flattened affect, poor insight and judgment. H&P: Results Labs Labs: Short CBC 06/16/25 Range/Units 14:25 WBC 9.1 (4.5-10.0) K/mm3 Hgb 12.7 (12.0-15.0) g/dL Hct 37.2 (37.0-47.0) % Plt Count 321 (150-375) k/mm3 BMP 06/16/25 14:25 Sodium 127 L Potassium 3.6 Chloride 90 L Carbon Dioxide 26 BUN 3 L Creatinine 0.69 L Glucose 134 H Calcium 8.9 Cardiac Enzymes 06/16/25 Range/Units 14:25 Total Creatine Kinase 101 (30-135) U/L Liver Function 06/16/25 Range/Units 14:25 Total Bilirubin 0.2 (0.2-1.3) mg/dL AST 31 (14-36) U/L ALT 24 (6-35) U/L Alkaline Phosphatase 62 (38-126) U/L Albumin 4.6 (3.5-5.1) g/dL Urine 06/16/25 Range/Units 14:41 Urine Color Yellow (Yellow) Urine Appearance Clear (Clear) Urine pH 6.0 (5.0-9.0) Ur Specific [place] 1.004 (1.001-1.035) Urine Protein Negative (Negative) mg/dL Urine Glucose (UA) Negative (Negative) mg/dL Assessment and Plan Assessment and plan (1) Altered mental status: Qualifiers: Altered mental status type: disorientation Qualified Code(s): R41.0 - Disorientation, unspecified Code(s): R41.82 - Altered mental status, unspecified Status: Acute Assessment and Plan: - head CT unremarkable - UA showed no indication for infection - sodium 127, family reports no prior history of hyponatremia - EKG showed NSR - history of hypothyroidism, check TSH Suspect acute on chronic disorientation secondary to acute hyponatremia. Patient has history of dementia. Will pursue further workup if no improvement with improvement in sodium levels, see plan below. (2) Hyponatremia: Code(s): E87.1 - Hypo-osmolality and hyponatremia Status: Acute Assessment and Plan: - Na 127 with no prior available for comparison - check serum osmolality, urine osmolality, urine sodium, protein to creatinine ratio, urine creatinine - IV fluids: - check bmp Q3H - consider nephrology consult if no improvement with IV fluids Per family the patient has a cup of water with her at all times and is frequently drinking free water. This coupled with mild diarrhea and poor p.o. intake (likely leading to poor dietary intake of salt) are likely the culprits of the patient's current hyponatremia. Will consult the dietitian for assistance with increasing caloric intake and will give NS. May need to consider fluid restriction. (3) Hypothyroidism: Qualifiers: Hypothyroidism type: unspecified Qualified Code(s): E03.9 - Hypothyroidism, unspecified Code(s): E03.9 - Hypothyroidism, unspecified Status: Acute Assessment and Plan: - check TSH - continue Synthroid Plan Plan to check stool culture, C diff, and CT of the abdomen/pelvis non con due to new stool incontinence/diarrhea. Diet: Regular GI Prophylaxis: N/a DVT Prophylaxis: SCDs IV fluids: 1L bolus -> 100 mL/hour Lines/Tubes: Peripheral IV Code Status: Full code Quality VTE Prophylaxis VTE prophylaxis: mechanical ordered Hospitalist [facility] Advance Care Plan I have confirmed that the patient's Advanced Care Plan is present, code status is documented, or surrogate decision maker is listed in patient medical record.: Yes Medication Reconciliation I have utilized all available resources to obtain, update and review the patients current medications (includes all prescriptions, OTC, herbals, cannabis, and nutritional supplements).: Yes
--- NOTE | 2025-06-16 20:20 | ADMGEN ---
This patient, Tita Kwan, was admitted to 3 [facility] Surg Room 304-01. Patient/family oriented to hospital policies and general routines including ID bracelet, bed and alarms, visiting hours, pain management, procedures, bathroom and other care routines, personal items, smoking policy, room service/diet, and visiting hours. Information on how to activate the Rapid Response Team has been discussed. Patient/Family are encouraged to report perceived risks to care and to ask questions if they do not understand what they are told or what they should do.
[2025-06-16 21:22] LABS: Anion Gap 9 mmol/L (4-12); Calcium 8.7 mg/dL (8.4-10.2); Carbon Dioxide 24 mmol/L (22-30); Chloride 89 mmol/L (98-107); Estimated CRCL calculation 74 ml/min; Estimated Glomerular Filt Rate > 60; Glucose 89 mg/dL (65-110); Potassium 3.6 mmol/L (3.4-5.0); Sodium 122 mmol/L (137-145)
[2025-06-16 21:46] LABS: Blood Urea Nitrogen < 2 mg/dL (7-17)
[2025-06-16] MEDS: DONEPEZIL HCL 10 MG TABLET PO (23:20)
[2025-06-17 00:54] LABS: Anion Gap 4 mmol/L (4-12); Calcium 9.0 mg/dL (8.4-10.2); Carbon Dioxide 31 mmol/L (22-30); Chloride 92 mmol/L (98-107); Estimated CRCL calculation 67 ml/min; Estimated Glomerular Filt Rate > 60; Glucose 114 mg/dL (65-110); Potassium 3.2 mmol/L (3.4-5.0); Sodium 127 mmol/L (137-145)
[2025-06-17 01:02] LABS: Blood Urea Nitrogen < 2 mg/dL (7-17)
[2025-06-17 03:30] LABS: Hematocrit 33.5 % (37.0-47.0); Hemoglobin 11.5 g/dL (12.0-15.0); Immature Granulocyte Percent A 0.2 % (0-0.5); Lymphocytes Absolute Auto 1.29 K/mm3 (0.9-3.2); Mean Corpuscular HGB Conc 34.3 g/dl (32-36); Mean Corpuscular Hemoglobin 29.0 pg (26-34); Mean Corpuscular Volume 84.6 fl (80-100); Nucleated Red Blood Cells Absolute Auto 0.000 K/mm3 (0.0-0.012); Nucleated Red Blood Cells Perc 0.0 % (0.0-0.2); Platelet Count Result 276 k/mm3 (150-375); Red Blood Count 3.96 M/mm3 (4.2-5.4); White Blood Count 6.1 K/mm3 (4.5-10.0)
[2025-06-17 03:46] LABS: Alanine Aminotransferase 15 U/L (6-35); Albumin Level 3.6 g/dL (3.5-5.1); Alkaline Phosphatase 65 U/L (38-126); Anion Gap 4 mmol/L (4-12); Aspartate Amino Transferase 25 U/L (14-36); Bilirubin,Total 0.3 mg/dL (0.2-1.3); Calcium 8.7 mg/dL (8.4-10.2); Carbon Dioxide 28 mmol/L (22-30); Chloride 98 mmol/L (98-107); Estimated CRCL calculation 67 ml/min; Estimated Glomerular Filt Rate > 60; Glucose 94 mg/dL (65-110); Magnesium 2.1 mg/dL (1.6-2.3); Potassium 3.6 mmol/L (3.4-5.0); Sodium 130 mmol/L (137-145); Total Protein 6.1 g/dL (6.3-8.2)
[2025-06-17 04:12] LABS: Blood Urea Nitrogen < 2 mg/dL (7-17)
[2025-06-17 04:21] LABS: Thyroid Stimulating Hormone Reflex 4.710 uIU/mL (0.465-4.68)
[2025-06-17 04:50] LABS: Free T4 Free Thyroxine Reflex 1.27 ng/dL (0.78-2.19)
[2025-06-17 05:37] LABS: Total Triiodothyronine (T3) 1.90 NG/ML (0.82-1.58)
[2025-06-17 06:00] VITALS: BP 99/56; PULSE 76; RESP 16; TEMP 36.3; O2SAT 99
[2025-06-17] MEDS: SODIUM CHLORIDE 0.9% IV 1,000 ML 100 ML IV CONT (06:34)
[2025-06-17] MEDS: LEVOTHYROXINE SODIUM 100 MCG TABLET PO (06:35)
[2025-06-17 07:34] VITALS: BP 110/72
[2025-06-17] MEDS: SERTRALINE HCL 50 MG TABLET 100 MG PO (10:00)
[2025-06-17] MEDS: ROSUVASTATIN 20 MG TABLET PO (10:00)
[2025-06-17 13:03] VITALS: BMI 21.3
[2025-06-17 14:00] VITALS: PULSE 76; TEMP 36.2; O2SAT 100
[2025-06-17 15:09] VITALS: BP 172/88
--- NOTE | 2025-06-17 15:20 | PM.IMPN ---
Progress Note: A&P Assessment and Plan (1) Altered mental status: Qualifiers: Altered mental status type: disorientation Qualified Code(s): R41.0 - Disorientation, unspecified Code(s): R41.82 - Altered mental status, unspecified Status: Acute Assessment and Plan: - head CT unremarkable - UA showed no indication for infection - sodium 127, family reports no prior history of hyponatremia - EKG showed NSR - history of hypothyroidism, TSH 4.71 Suspect acute on chronic disorientation secondary to acute hyponatremia. Patient has history of dementia. (2) Hyponatremia: Code(s): E87.1 - Hypo-osmolality and hyponatremia Status: Acute Assessment and Plan: - Na 127 with no prior available for comparison - check serum osmolality, urine osmolality, urine sodium, protein to creatinine ratio, urine creatinine - IV fluids: Normal saline - check bmp Q3H - consider nephrology consult if no improvement with IV fluids Has mild diarrhea and poor p.o. intake. Could be culprits for current hyponatremia. Also drinks free water frequently (3) Hypothyroidism: Qualifiers: Hypothyroidism type: unspecified Qualified Code(s): E03.9 - Hypothyroidism, unspecified Code(s): E03.9 - Hypothyroidism, unspecified Status: Acute Assessment and Plan: TSH 4.7 - continue Synthroid Plan Diarrhea: Check stool studies. CT abdomen pelvis with fluid in the proximal colon consistent with reported history of diarrhea. No other acute intra abdominal pelvic process. Diet: Regular GI Prophylaxis: N/a DVT Prophylaxis: SCDs IV fluids: 1L bolus -> 100 mL/hour Lines/Tubes: Peripheral IV Code Status: Full code Subjective Date/time seen: 06/17/25 15:20 Interval history: No overnight events. Patient still confused. Family at bedside and discussed with her. Patient lives alone. Has early-onset dementia Review of Systems Review of Systems: All systems reviewed & are unremarkable except as noted in HPI and below Exam Narrative: GENERAL: Well-appearing, well-nourished, and in no acute distress. HEAD: Normocephalic, atraumatic. EYES: PERRLA and EOMI. ENT: Nares clear, no rhinorrhea or epistaxis. Mucous membranes moist. NECK: Supple. No adenopathy or masses. CHEST: Clear to auscultation. No respiratory distress. No wheezes rales or rhonchi HEART: Regular rate and rhythm. No murmur heard. Normal peripheral pulses. ABDOMEN: Soft, nontender, nondistended, normal active bowel sounds. EXTREMITIES: Normal range of motion. No edema. Strength equal in bilateral upper and lower extremities SKIN: Warm, dry, no rash. NEURO: No focal deficits. Alert and oriented x1. CN II-XII grossly intact PSYCH: Normal mood and affect Objective Data Vital Signs Vital Signs: Vital Signs - 24 hr 06/16/25 18:34 06/16/25 18:38 06/16/25 20:00 Temperature 98.3 F 98.6 F 97.1 F L Pulse Rate 66 64 Respiratory Rate 17 12 Blood Pressure 161/87 H 141/71 H Pulse Oximetry 100 100 Oxygen Delivery 06/16/25 23:37 06/17/25 06:00 06/17/25 07:34 Temperature 97.1 F L 97.4 F L Pulse Rate 72 76 Respiratory Rate 20 16 Blood Pressure 96/61 L 99/56 L 110/72 Pulse Oximetry 100 99 Oxygen Delivery 06/17/25 08:20 06/17/25 14:00 06/17/25 15:09 Temperature 97.2 F L Pulse Rate 76 Respiratory Rate Blood Pressure 172/88 H Pulse Oximetry 100 Oxygen Delivery Room Air Intake/Output Intake/Output: Intake & Output 06/14/25 06/15/25 06/16/25 06/17/25 23:59 23:59 23:59 23:59 Intake Total 1686 Balance 1686 Meds/Results Medications: Active Medications Generic Name Dose Route Start Last Admin Trade Name Freq PRN Reason Stop Dose Admin Acetaminophen 650 mg 06/16/25 22:38 Acetaminophen 325 Mg Tablet PO Q6H PRN Mild Pain (1-3) or Fever Donepezil HCl 10 mg 06/16/25 22:45 06/16/25 23:20 Donepezil Hcl 10 Mg Tablet PO 10 mg HS MORALES Administration Levothyroxine Sodium 100 mcg 06/17/25 06:30 06/17/25 06:35 Levothyroxine Sodium 100 Mcg Tablet PO 100 mcg DAILY@0630 MORALES Administration Ondansetron HCl 4 mg 06/16/25 22:38 Ondansetron Hcl Odt 4 Mg Tablet PO Q6H PRN Nausea And Vomiting Polyethylene Glycol 17 gm 06/16/25 22:38 Polyethylene Glycol 3350 17 Gm Powd.Pack PO QAM PRN Constipation Quetiapine Fumarate 25 mg 06/16/25 22:50 06/16/25 23:20 Quetiapine Fumarate 25 Mg Tablet PO 25 mg HS MORALES Administration Rosuvastatin Calcium 20 mg 06/17/25 09:00 06/17/25 10:00 Rosuvastatin 20 Mg Tablet PO 20 mg QAM MORALES Administration Sertraline HCl 100 mg 06/17/25 09:00 06/17/25 10:00 Sertraline Hcl 50 Mg Tablet PO 100 mg QAM MORALES Administration Radiology Results: ITS Impressions Head CT 06/16/25 15:06 Impression: No acute intracranial hemorrhage or suspicious mass effect. Cervical Spine CT 06/16/25 15:10 Impression: Degenerative disease, without acute fracture. Elbow X-Ray 06/16/25 17:58 IMPRESSION: No acute fracture or dislocation Abdomen/Pelvis CT 06/17/25 09:41 IMPRESSION: 1. Fluid in the proximal colon consistent with reported history of diarrhea. No other acute intra-abdominal/pelvic process. Labs Labs: Laboratory Results - last 24 hr 06/16/25 06/16/25 06/17/25 14:41 21:04 00:23 WBC RBC Hgb Hct MCV MCH MCHC RDW Plt Count MPV Immature Gran % (Auto) Neut % (Auto) Lymph % (Auto) [place] % (Auto) Eos % (Auto) Baso % (Auto) Lymph # (Auto) [place] # (Auto) Eos # (Auto) Baso # (Auto) Abs Immat Gran (auto) Absolute Neuts (auto) Absolute Nucleated RBC Nucleated RBC % Sodium 122 L 127 L Potassium 3.6 3.2 L Chloride 89 L 92 L Carbon Dioxide 24 31 H Anion Gap 9 4 BUN < 2 L < 2 L Creatinine 0.54 L 0.60 L Estim Creat Clear Calc 74 67 Estimated GFR > 60 > 60 Glucose 89 114 H Calcium 8.7 9.0 Magnesium Total Bilirubin AST ALT Alkaline Phosphatase Total Protein Albumin TSH (Reflex) Free T4 Total T3 Urine Color Yellow Urine Appearance Clear Urine pH 6.0 Ur Specific [place] 1.004 Urine Protein Negative Urine Glucose (UA) Negative Urine Ketones Negative Ur Blood (Man) Negative Urine Nitrate Negative Urine Bilirubin Negative Urine Urobilinogen 0.2 Add Ur Microanalysis Reviewed Leukocyte Esterase Rfl Trace H Urine RBC 0-2 Urine WBC 0-5 Ur Squamous Epith Cells None seen Urine Bacteria None seen Urine Casts 0-2 06/17/25 03:22 WBC 6.1 RBC 3.96 L Hgb 11.5 L Hct 33.5 L MCV 84.6 MCH 29.0 MCHC 34.3 RDW 11.9 Plt Count 276 MPV 8.9 Immature Gran % (Auto) 0.2 Neut % (Auto) 62.9 Lymph % (Auto) 21.1 [place] % (Auto) 13.6 H Eos % (Auto) 1.5 Baso % (Auto) 0.7 Lymph # (Auto) 1.29 [place] # (Auto) 0.8 H Eos # (Auto) 0.1 Baso # (Auto) 0.0 Abs Immat Gran (auto) 0.01 Absolute Neuts (auto) 3.9 Absolute Nucleated RBC 0.000 Nucleated RBC % 0.0 Sodium 130 L Potassium 3.6 Chloride 98 Carbon Dioxide 28 Anion Gap 4 BUN < 2 L Creatinine 0.60 L Estim Creat Clear Calc 67 Estimated GFR > 60 Glucose 94 Calcium 8.7 Magnesium 2.1 Total Bilirubin 0.3 AST 25 ALT 15 Alkaline Phosphatase 65 Total Protein 6.1 L Albumin 3.6 TSH (Reflex) 4.710 H Free T4 1.27 Total T3 1.90 H Urine Color Urine Appearance Urine pH Ur Specific [place] Urine Protein Urine Glucose (UA) Urine Ketones Ur Blood (Man) Urine Nitrate Urine Bilirubin Urine Urobilinogen Add Ur Microanalysis Leukocyte Esterase Rfl Urine RBC Urine WBC Ur Squamous Epith Cells Urine Bacteria Urine Casts
[2025-06-17 20:00] VITALS: BP 98/51; PULSE 73; RESP 18; TEMP 36.3; O2SAT 97
[2025-06-17] MEDS: DONEPEZIL HCL 10 MG TABLET PO (20:39)
[2025-06-18] VITALS: BP 110/58; PULSE 77; RESP 20; TEMP 36.3; O2SAT 99
[2025-06-18 04:00] VITALS: BP 101/55; PULSE 75; RESP 18; TEMP 36.4; O2SAT 98
[2025-06-18 06:06] LABS: Hematocrit 35.1 % (37.0-47.0); Hemoglobin 11.9 g/dL (12.0-15.0); Immature Granulocyte Percent A 0.4 % (0-0.5); Lymphocytes Absolute Auto 1.24 K/mm3 (0.9-3.2); Mean Corpuscular HGB Conc 33.9 g/dl (32-36); Mean Corpuscular Hemoglobin 29.2 pg (26-34); Mean Corpuscular Volume 86.2 fl (80-100); Nucleated Red Blood Cells Absolute Auto 0.000 K/mm3 (0.0-0.012); Nucleated Red Blood Cells Perc 0.0 % (0.0-0.2); Platelet Count Result 295 k/mm3 (150-375); Red Blood Count 4.07 M/mm3 (4.2-5.4); White Blood Count 4.5 K/mm3 (4.5-10.0)
[2025-06-18 06:28] LABS: Alanine Aminotransferase 16 U/L (6-35); Albumin Level 3.8 g/dL (3.5-5.1); Alkaline Phosphatase 59 U/L (38-126); Anion Gap 6 mmol/L (4-12); Aspartate Amino Transferase 29 U/L (14-36); Bilirubin,Total 0.5 mg/dL (0.2-1.3); Calcium 9.2 mg/dL (8.4-10.2); Carbon Dioxide 28 mmol/L (22-30); Chloride 99 mmol/L (98-107); Estimated CRCL calculation 57 ml/min; Estimated Glomerular Filt Rate > 60; Glucose 93 mg/dL (65-110); Magnesium 2.2 mg/dL (1.6-2.3); Potassium 3.7 mmol/L (3.4-5.0); Sodium 133 mmol/L (137-145); Total Protein 6.7 g/dL (6.3-8.2)
[2025-06-18 06:40] LABS: Blood Urea Nitrogen < 2 mg/dL (7-17)
[2025-06-18] MEDS: LEVOTHYROXINE SODIUM 100 MCG TABLET PO (06:45)
[2025-06-18] MEDS: SERTRALINE HCL 50 MG TABLET 100 MG PO (09:32)
[2025-06-18] MEDS: ROSUVASTATIN 20 MG TABLET PO (09:32)
[2025-06-18] MEDS: SODIUM CHLORIDE 1 GM TABLET PO ×2 (09:32→16:04)
[2025-06-18 14:00] VITALS: BP 143/85; PULSE 77; RESP 20; O2SAT 100
--- NOTE | 2025-06-18 14:41 | PM.IMPN ---
Progress Note: A&P Assessment and Plan (1) Altered mental status: Qualifiers: Altered mental status type: disorientation Qualified Code(s): R41.0 - Disorientation, unspecified Code(s): R41.82 - Altered mental status, unspecified Status: Acute Assessment and Plan: - head CT unremarkable - UA showed no indication for infection - sodium 127, family reports no prior history of hyponatremia - EKG showed NSR - history of hypothyroidism, TSH 4.71 Suspect acute on chronic disorientation secondary to acute hyponatremia. Patient has history of dementia. (2) Hyponatremia: Code(s): E87.1 - Hypo-osmolality and hyponatremia Status: Acute Assessment and Plan: From polydipsia Now on fluid restriction Na 133 today Continue fluid restriction (3) Hypothyroidism: Qualifiers: Hypothyroidism type: unspecified Qualified Code(s): E03.9 - Hypothyroidism, unspecified Code(s): E03.9 - Hypothyroidism, unspecified Status: Acute Assessment and Plan: TSH 4.7 - continue Synthroid Plan Diarrhea: Check stool studies. CT abdomen pelvis with fluid in the proximal colon consistent with reported history of diarrhea. No other acute intra abdominal pelvic process. Diet: Regular DVT Prophylaxis: Sq Lovenox IV fluids: 1L bolus -> 100 mL/hour Lines/Tubes: Peripheral IV Code Status: Full code Subjective Date/time seen: 06/18/25 14:41 Interval history: Comfortable at bedside and still confused Review of Systems Review of Systems: All systems reviewed & are unremarkable except as noted in HPI and below ROS unobtainable: Yes unobtainable due to mental status Exam Narrative: GENERAL: Well-appearing, well-nourished, and in no acute distress. HEAD: Normocephalic, atraumatic. EYES: PERRLA and EOMI. ENT: Nares clear, no rhinorrhea or epistaxis. Mucous membranes moist. NECK: Supple. No adenopathy or masses. CHEST: Clear to auscultation. No respiratory distress. No wheezes rales or rhonchi HEART: Regular rate and rhythm. No murmur heard. Normal peripheral pulses. ABDOMEN: Soft, nontender, nondistended, normal active bowel sounds. EXTREMITIES: Normal range of motion. No edema. Strength equal in bilateral upper and lower extremities SKIN: Warm, dry, no rash. NEURO: No focal deficits. Alert and oriented x1. CN II-XII grossly intact PSYCH: Normal mood and affect Const: General: comfortable and no acute distress Other: , female, nontoxic appearance HENMT: Face/Nose/Sinus: Normal nares present Mouth: Yes moist mucous membranes Eyes: General: appearance normal, both eyes and all related structures Sclera: sclerae normal Pupils: Equal, round and reactive pupils present EOM: EOMs intact bilaterally Resp: Effort & Inspection: normal respiratory effort Auscultation: clear to auscultation bilaterally Cardio: Rate: regular rate Rhythm: regular rhythm GI: Other: Abdomen soft, nondistended, nontender. Normoactive bowel sounds in all quadrants. Skin: General skin exam: normal color and no rashes or lesions noted Wounds: no wounds Neuro: Cranial nerves: Yes Equal, round and reactive pupils present Speech: normal speech Motor exam (neuro): 5/5 motor strength present throughout Sensory Exam: normal sensation Other: A/Ox1, unable to provide any history. Extrem: General: normal to inspection Psych: Mental Status: mental status grossly normal Other: Flattened affect, poor insight and judgment. Objective Data Vital Signs Vital Signs: Vital Signs - 24 hr 06/17/25 15:09 06/17/25 15:16 06/17/25 20:00 Temperature 97.4 F L Pulse Rate 73 Respiratory Rate 18 Blood Pressure 172/88 H 98/51 L Pulse Oximetry 97 Oxygen Delivery Room Air 06/17/25 20:00 06/18/25 00:00 06/18/25 04:00 Temperature 97.3 F L 97.5 F L Pulse Rate 73 77 75 Respiratory Rate 18 20 18 Blood Pressure 110/58 L 101/55 L Pulse Oximetry 97 99 98 Oxygen Delivery Room Air 06/18/25 08:00 06/18/25 09:53 06/18/25 14:00 Temperature Pulse Rate 77 Respiratory Rate 20 Blood Pressure 143/85 H Pulse Oximetry 100 Oxygen Delivery Room Air Room Air Intake/Output Intake/Output: Intake & Output 06/15/25 06/16/25 06/17/25 06/18/25 23:59 23:59 23:59 23:59 Intake Total 5686 1300 Balance 5686 1300 Meds/Results Medications: Active Medications Generic Name Dose Route Start Last Admin Trade Name Freq PRN Reason Stop Dose Admin Acetaminophen 650 mg 06/16/25 22:38 Acetaminophen 325 Mg Tablet PO Q6H PRN Mild Pain (1-3) or Fever Donepezil HCl 10 mg 06/16/25 22:45 06/17/25 20:39 Donepezil Hcl 10 Mg Tablet PO 10 mg HS MORALES Administration Levothyroxine Sodium 100 mcg 06/17/25 06:30 06/18/25 06:45 Levothyroxine Sodium 100 Mcg Tablet PO 100 mcg DAILY@0630 MORALES Administration Ondansetron HCl 4 mg 06/16/25 22:38 Ondansetron Hcl Odt 4 Mg Tablet PO Q6H PRN Nausea And Vomiting Polyethylene Glycol 17 gm 06/16/25 22:38 Polyethylene Glycol 3350 17 Gm Powd.Pack PO QAM PRN Constipation Quetiapine Fumarate 25 mg 06/16/25 22:50 06/17/25 20:39 Quetiapine Fumarate 25 Mg Tablet PO 25 mg HS MORALES Administration Rosuvastatin Calcium 20 mg 06/17/25 09:00 06/18/25 09:32 Rosuvastatin 20 Mg Tablet PO 20 mg QAM MORALES Administration Sertraline HCl 100 mg 06/17/25 09:00 06/18/25 09:32 Sertraline Hcl 50 Mg Tablet PO 100 mg QAM MORALES Administration Sodium Chloride 1 gm 06/18/25 09:00 06/18/25 09:32 Sodium Chloride 1 Gm Tablet PO 1 gm BID MORALES Administration Radiology Results: ITS Impressions Head CT 06/16/25 15:06 Impression: No acute intracranial hemorrhage or suspicious mass effect. Cervical Spine CT 06/16/25 15:10 Impression: Degenerative disease, without acute fracture. Elbow X-Ray 06/16/25 17:58 IMPRESSION: No acute fracture or dislocation Abdomen/Pelvis CT 06/17/25 09:41 IMPRESSION: 1. Fluid in the proximal colon consistent with reported history of diarrhea. No other acute intra-abdominal/pelvic process. Labs Labs: Laboratory Results - last 24 hr 06/18/25 05:27 WBC 4.5 RBC 4.07 L Hgb 11.9 L Hct 35.1 L MCV 86.2 MCH 29.2 MCHC 33.9 RDW 12.1 Plt Count 295 MPV 9.5 Immature Gran % (Auto) 0.4 Neut % (Auto) 57.4 Lymph % (Auto) 27.4 [place] % (Auto) 12.4 H Eos % (Auto) 1.3 Baso % (Auto) 1.1 Lymph # (Auto) 1.24 [place] # (Auto) 0.6 Eos # (Auto) 0.1 Baso # (Auto) 0.1 Abs Immat Gran (auto) 0.02 Absolute Neuts (auto) 2.6 Absolute Nucleated RBC 0.000 Nucleated RBC % 0.0 Sodium 133 L Potassium 3.7 Chloride 99 Carbon Dioxide 28 Anion Gap 6 BUN < 2 L Creatinine 0.72 Estim Creat Clear Calc 57 Estimated GFR > 60 Glucose 93 Calcium 9.2 Magnesium 2.2 Total Bilirubin 0.5 AST 29 ALT 16 Alkaline Phosphatase 59 Total Protein 6.7 Albumin 3.8 Quality VTE Prophylaxis VTE prophylaxis: mechanical ordered
[2025-06-18] MEDS: DONEPEZIL HCL 10 MG TABLET PO (19:50)
[2025-06-18 20:51] VITALS: BP 147/84; PULSE 75; RESP 18; TEMP 36.4; O2SAT 100
[2025-06-19 06:00] VITALS: BP 129/63; PULSE 66; RESP 16; TEMP 36.3; O2SAT 98
[2025-06-19] MEDS: LEVOTHYROXINE SODIUM 100 MCG TABLET PO (06:01)
[2025-06-19] MEDS: SERTRALINE HCL 50 MG TABLET 100 MG PO (08:35)
[2025-06-19] MEDS: ROSUVASTATIN 20 MG TABLET PO (08:35)
[2025-06-19] MEDS: SODIUM CHLORIDE 1 GM TABLET PO ×2 (08:35→17:05)
--- NOTE | 2025-06-19 13:53 | PM.IMPN ---
Progress Note: A&P Assessment and Plan (1) Altered mental status: Qualifiers: Altered mental status type: disorientation Qualified Code(s): R41.0 - Disorientation, unspecified Code(s): R41.82 - Altered mental status, unspecified Status: Acute Assessment and Plan: - head CT unremarkable - UA showed no indication for infection - sodium 127, family reports no prior history of hyponatremia - EKG showed NSR - history of hypothyroidism, TSH 4.71 Suspect acute on chronic disorientation secondary to acute hyponatremia. Patient has history of dementia. (2) Hyponatremia: Code(s): E87.1 - Hypo-osmolality and hyponatremia Status: Acute Assessment and Plan: From polydipsia Now on fluid restriction Na 133 today Continue fluid restriction (3) Hypothyroidism: Qualifiers: Hypothyroidism type: unspecified Qualified Code(s): E03.9 - Hypothyroidism, unspecified Code(s): E03.9 - Hypothyroidism, unspecified Status: Acute Assessment and Plan: TSH 4.7 - continue Synthroid Plan Diarrhea: Check stool studies. CT abdomen pelvis with fluid in the proximal colon consistent with reported history of diarrhea. No other acute intra abdominal pelvic process. Diet: Regular DVT Prophylaxis: Sq Lovenox Awaiting placement Code Status: Full code Subjective Date/time seen: 06/19/25 13:53 Interval history: Comfortable at bedside Awaiting placement Review of Systems Review of Systems: All systems reviewed & are unremarkable except as noted in HPI and below ROS unobtainable: Yes unobtainable due to mental status Exam Narrative: GENERAL: Well-appearing, well-nourished, and in no acute distress. HEAD: Normocephalic, atraumatic. EYES: PERRLA and EOMI. ENT: Nares clear, no rhinorrhea or epistaxis. Mucous membranes moist. NECK: Supple. No adenopathy or masses. CHEST: Clear to auscultation. No respiratory distress. No wheezes rales or rhonchi HEART: Regular rate and rhythm. No murmur heard. Normal peripheral pulses. ABDOMEN: Soft, nontender, nondistended, normal active bowel sounds. EXTREMITIES: Normal range of motion. No edema. Strength equal in bilateral upper and lower extremities SKIN: Warm, dry, no rash. NEURO: No focal deficits. Alert and oriented x1. CN II-XII grossly intact PSYCH: Normal mood and affect Const: General: comfortable and no acute distress Other: , female, nontoxic appearance HENMT: Face/Nose/Sinus: Normal nares present Mouth: Yes moist mucous membranes Eyes: General: appearance normal, both eyes and all related structures Sclera: sclerae normal Pupils: Equal, round and reactive pupils present EOM: EOMs intact bilaterally Resp: Effort & Inspection: normal respiratory effort Auscultation: clear to auscultation bilaterally Cardio: Rate: regular rate Rhythm: regular rhythm GI: Other: Abdomen soft, nondistended, nontender. Normoactive bowel sounds in all quadrants. Skin: General skin exam: normal color and no rashes or lesions noted Wounds: no wounds Neuro: Cranial nerves: Yes Equal, round and reactive pupils present Speech: normal speech Motor exam (neuro): 5/5 motor strength present throughout Sensory Exam: normal sensation Other: A/Ox1, unable to provide any history. Extrem: General: normal to inspection Psych: Mental Status: mental status grossly normal Other: Flattened affect, poor insight and judgment. Objective Data Vital Signs Vital Signs: Vital Signs - 24 hr 06/18/25 14:00 06/18/25 20:00 06/18/25 20:51 Temperature 97.6 F Pulse Rate 77 75 Respiratory Rate 20 18 Blood Pressure 143/85 H 147/84 H Pulse Oximetry 100 100 Oxygen Delivery Room Air 06/19/25 06:00 06/19/25 08:35 Temperature 97.3 F L Pulse Rate 66 Respiratory Rate 16 Blood Pressure 129/63 Pulse Oximetry 98 Oxygen Delivery Room Air Intake/Output Intake/Output: Intake & Output 06/16/25 06/17/25 06/18/25 06/19/25 23:59 23:59 23:59 23:59 Intake Total 5686 1850 Balance 5686 1850 Meds/Results Medications: Active Medications Generic Name Dose Route Start Last Admin Trade Name Freq PRN Reason Stop Dose Admin Acetaminophen 650 mg 06/16/25 22:38 Acetaminophen 325 Mg Tablet PO Q6H PRN Mild Pain (1-3) or Fever Donepezil HCl 10 mg 06/16/25 22:45 06/18/25 19:50 Donepezil Hcl 10 Mg Tablet PO 10 mg HS MORALES Administration Enoxaparin Sodium 40 mg 06/19/25 09:00 06/19/25 11:27 Enoxaparin 40 Mg/0.4 Ml Syringe SUB-Q Not Given DAILY MORALES Levothyroxine Sodium 100 mcg 06/17/25 06:30 06/19/25 06:01 Levothyroxine Sodium 100 Mcg Tablet PO 100 mcg DAILY@0630 MORALES Administration Ondansetron HCl 4 mg 06/16/25 22:38 Ondansetron Hcl Odt 4 Mg Tablet PO Q6H PRN Nausea And Vomiting Polyethylene Glycol 17 gm 06/16/25 22:38 Polyethylene Glycol 3350 17 Gm Powd.Pack PO QAM PRN Constipation Quetiapine Fumarate 25 mg 06/16/25 22:50 06/18/25 19:50 Quetiapine Fumarate 25 Mg Tablet PO 25 mg HS MORALES Administration Rosuvastatin Calcium 20 mg 06/17/25 09:00 06/19/25 08:35 Rosuvastatin 20 Mg Tablet PO 20 mg QAM MORALES Administration Sertraline HCl 100 mg 06/17/25 09:00 06/19/25 08:35 Sertraline Hcl 50 Mg Tablet PO 100 mg QAM MORALES Administration Sodium Chloride 1 gm 06/18/25 09:00 06/19/25 08:35 Sodium Chloride 1 Gm Tablet PO 1 gm BID MORALES Administration Radiology Results: ITS Impressions Head CT 06/16/25 15:06 Impression: No acute intracranial hemorrhage or suspicious mass effect. Cervical Spine CT 06/16/25 15:10 Impression: Degenerative disease, without acute fracture. Elbow X-Ray 06/16/25 17:58 IMPRESSION: No acute fracture or dislocation Abdomen/Pelvis CT 06/17/25 09:41 IMPRESSION: 1. Fluid in the proximal colon consistent with reported history of diarrhea. No other acute intra-abdominal/pelvic process. Quality VTE Prophylaxis VTE prophylaxis: mechanical ordered
[2025-06-19 14:00] VITALS: BP 121/79; PULSE 73; RESP 18; TEMP 36; O2SAT 100
[2025-06-19 20:00] VITALS: BP 170/82; PULSE 68; RESP 19; TEMP 35.9; O2SAT 100
[2025-06-19] MEDS: DONEPEZIL HCL 10 MG TABLET PO (21:06)
[2025-06-20 04:00] VITALS: BP 107/70; PULSE 70; RESP 14; TEMP 36.3; O2SAT 96
[2025-06-20] MEDS: LEVOTHYROXINE SODIUM 100 MCG TABLET PO (05:48)
[2025-06-20 06:40] LABS: Alanine Aminotransferase 18 U/L (6-35); Albumin Level 3.7 g/dL (3.5-5.1); Alkaline Phosphatase 60 U/L (38-126); Anion Gap 6 mmol/L (4-12); Aspartate Amino Transferase 28 U/L (14-36); Bilirubin,Total 0.2 mg/dL (0.2-1.3); Blood Urea Nitrogen 3 mg/dL (7-17); Calcium 9.2 mg/dL (8.4-10.2); Carbon Dioxide 29 mmol/L (22-30); Chloride 100 mmol/L (98-107); Estimated CRCL calculation 59 ml/min; Estimated Glomerular Filt Rate > 60; Glucose 89 mg/dL (65-110); Potassium 3.5 mmol/L (3.4-5.0); Sodium 135 mmol/L (137-145); Total Protein 6.4 g/dL (6.3-8.2)
[2025-06-20 09:56] VITALS: BP 132/74; PULSE 66; RESP 16; TEMP 36.1; O2SAT 100
--- NOTE | 2025-06-20 09:56 | PC.NURSE ---
pt standing at nurse's station, in good spirits, suspicious of meds I am giving her, she does not want to take them at this time, reviewed plan of care and did encourage pt
[2025-06-20 12:00] VITALS: BP 126/79; PULSE 66; RESP 16; TEMP 36.1; O2SAT 100
--- NOTE | 2025-06-20 14:18 | PM.DS ---
DS: Admitting Diagnosis Discharge Date 06/20/25 Admitting Diagnosis Poor Appetite, Worsening Confusion DS: Discharge Diagnosis Discharge Diagnosis (1) Hyponatremia: Code(s): E87.1 - Hypo-osmolality and hyponatremia Status: Acute DS: Summary Hospital Course Hospital Course: HPI per admitting provider on 06/16/25: '60 y/o F with PMH of dementia presents here with poor p.o. intake and worsening confusion. The patient presents here from home for further evaluation of poor p.o. intake, incontinence, and worsening confusion. Patient has a history of dementia and currently A/Ox1, therefore family provided collateral information which was obtained through chart review and report to the bedside RN. The report onset over the last few days. She then developed urinary incontinence and had a ground level fall yesterday on 06/15. Fall was witnessed by the patient's daughter. Patient did have a head strike without loss of consciousness. Family is also reporting when the patient has been incontinent she has also had a small amount of diarrhea. Patient denies fever, chills, body aches, or abdominal pain on exam. Initial VS at presentation: 97.9? F, HR 96, R 18, 129/69, and 99% on RA. ED workup showed: No leukocytosis go been no anemia, normal coags, sodium 127 (no previous available for comparison), creatinine 0.69 and GFR >60, glucose 134, and no other significant electrolyte derangements. UA showed trace leuk esterase otherwise unremarkable. Head CT showed no acute intracranial hemorrhage or suspicious mass effect. C-spine CT showed degenerative disease without acute fracture. Elbow XR (L) showed no acute fracture or dislocation. EKG showed sinus rhythm, possible left atrial enlargement, nonspecific T-wave abnormality, rate 77.' Patient noted to be hyponatremic from polydipsia, patient drinks a lot of fluids and was fluid restricted and placed on salt tablet, Hyponatremia resolved. production control coordinator was consutled fro placement and she is placed in senior living today Patient will continue with 1500cc per fluid restriction. AMS improved but to her baseline confusion. F/u with PCP in 3-5 days Time Spent with Patient Time attestation: Total time spent providing and/or coordinating discharge services: DS: Data Data Completed and Pending Labs on day of discharge: Labs from last 24 hours 06/20/25 04:57 Sodium 135 L Potassium 3.5 Chloride 100 Carbon Dioxide 29 Anion Gap 6 BUN 3 L Creatinine 0.69 L Estim Creat Clear Calc 59 Estimated GFR > 60 Glucose 89 Calcium 9.2 Total Bilirubin 0.2 AST 28 ALT 18 Alkaline Phosphatase 60 Total Protein 6.4 Albumin 3.7 Discharge Plan Discharge Attending physician on discharge: Henny Meade Discharging Clinician: Henny Meade Anticipated Discharge Date/Time: 06/20/25 14:15 Patient Disposition: NH Alf/Asst Living Activity: as tolerated Diet: as tolerated and regular Discharge Instructions: Fluid restriction to 1500 daily Patient Instructions: Antibiotic Form Patient Language: Malay Stand Alone Forms: General Discharge Information Follow-up/Referrals: Stephanie,Mj Gallo MD [Primary Care Provider, Unknown] Referral Note: F/u with PCP in 3-5 days Discharge Medications: New sodium chloride 1,000 mg Tablet,Soluble 1,000 mg PO BID 5 Days Qty: 10 0RF Continued donepezil 10 mg tablet 10 mg PO HS levothyroxine 100 mcg tablet 100 mcg PO .am quetiapine 25 mg tablet 25 mg PO HS rosuvastatin 20 mg tablet 20 mg PO .am sertraline 100 mg tablet 100 mg PO .am Date of admission: 06/17/25 10:58 Primary Care Provider: Stephanie,Mj Gallo Admitting Provider: Deonte Kim Attending physician on admission: Deonte Kim Condition: Stable
== END 2025-06-20 14:49 | DRG 641 ==
LOC: ANHED 15:13 → ANH3MEDSUR 19:21
PROVIDERS: Internal Medicine; Student in an Organized Health Care Education/Training Program; Admitting Provider Family Medicine; Emergency Provider Physician Assistant; PCP Family Medicine; Visit Provider Internal Medicine
DX: E87.1 Hypo-osmolality and hyponatremia (principal); R41.82 Altered mental status, unspecified; W01.10XA Fall on same level from slipping, tripping and stumbling with subsequent striking against unspecified object, initial encounter; E03.9 Hypothyroidism, unspecified; E78.5 Hyperlipidemia, unspecified; F03.90 Unspecified dementia, unspecified severity, without behavioral disturbance, psychotic disturbance, mood disturbance, and anxiety; G31.09 Other frontotemporal neurocognitive disorder; R63.1 Polydipsia; R32 Unspecified urinary incontinence; Z87.891 Personal history of nicotine dependence
CPT/HCPCS: 36415; 70450; 72125; 73080; 74176; 80048; 80053; 81001; 82550; 83735; 84439; 84443; 84480; 85025; 85610; 85730; 93005; 96361; 96374; 97161; 97165; 99285; A9270; G0378; J2060; J7030